=== PATIENT | male | born 2000 | race Hispanic/Latino ===

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

== ENCOUNTER 2022-05-10 07:00 | Emergency (ER) | payer OTHER ==
[~2022-05-10] VITALS: Ht 167.6 cm; Wt 77.5 kg
[2022-05-10 10:33] VITALS: BP 120/62
== END 2022-05-10 11:59 | disposition home or self-care (01) ==
LOC: M ED 07:00
DX: R25.1 Tremor, unspecified (principal); J45.909 Unspecified asthma, uncomplicated